=== PATIENT | male | born 1960 | race Caucasian/White ===

== ENCOUNTER → 2021-04-01 | Outpatient (CLI) | payer OTHER ==
[~2021-04-01] MED LIST: ALEVE220 MG PO; COLACE100 MG PO; FISH OIL 1,001000 M2 PO; FLEXERIL PO; FLOMAX0.4 MG PO; HYDROCODONE-AP1 EAC6 PO; IBUPROFEN 200200 M1 PO; IBUPROFEN 800800 M1 PO; MOBIC15 MG PO; MULTIVITAMINS PO; NABUMETONE 750750 M1 PO; NAPROSYN500 MG PO; NEURONTIN 300300 M1 PO; NORCO 5-325 TA1 EACH PO; NORFLEX100 MG PO; PERCOCET PO; ROBAXIN 750 MG750 M1 PO; SENNA-DOCUSATE1 EACH PO; SENNA8.6 MG PO; TRAMADOL 50 MG50 MG PO; TUMS PO; TYLENOL325 MG PO; ULTRAM 50MG TAB50 MG PO; VIAGRA; VIAGRA100 MG PO; WAL ITIN PO; WAL-PHED PO; WAL-PHED SINUS1 EACH PO
== END | disposition home or self-care (01) ==
LOC: CAT 11:12
DX: Z13.6 Encounter for screening for cardiovascular disorders (principal); E78.00 Pure hypercholesterolemia, unspecified; I25.10 Atherosclerotic heart disease of native coronary artery without angina pectoris